=== PATIENT | male | born 1975 ===

== ENCOUNTER 2024-11-02 12:16 | Emergency (ER) | payer OTHER ==
[2024-11-02] MEDS: Lidocaine 2% 5 ML SDV INJECT ONE (13:32)
[2024-11-02] MEDS: Diphtheria,Pertussis(Acell),Tetanus Vaccine 0.5 ML Syringe IM ONE (13:33)
== END 2024-11-02 14:00 | disposition left against medical advice (07) ==
LOC: MW.ED 12:16
DX: S61.412A Laceration without foreign body of left hand, initial encounter (principal); J45.909 Unspecified asthma, uncomplicated; Z88.0 Allergy status to penicillin; Z79.899 Other long term (current) drug therapy; W26.8XXA Contact with other sharp object(s), not elsewhere classified, initial encounter; Z75.3 Unavailability and inaccessibility of health-care facilities; Z23 Encounter for immunization
CPT/HCPCS: 12002; 90471; 90715; 99282; J2003